=== PATIENT | female | born 1965 | race Caucasian/White ===

== ENCOUNTER → 2024-06-05 | Outpatient (CLI) | payer OTHER ==
--- NOTE | 2024-06-05 15:32 | CT ---
EXAMINATION TYPE: CT abdomen pelvis w con DATE OF EXAM: 06/05/2024 COMPARISON: None CLINICAL INDICATION: Female, 59 years old with history of R11.0 NAUSEA R74.8 ABNORMAL LEVELS OF OTHER SERUM; PHH, elevated pancreatic enzymes TECHNIQUE: Performed with Oral Contrast and with IV Contrast, patient injected with 100ml mL of Isovue 300. CT DLP: 610.[address] CTDI: mGy Automated exposure control for dose reduction was used. FINDINGS: There are single sub-4 mm pulmonary nodules in the lung bases. There is no lung consolidation or pleu ral effusion The gallbladder is normal without distention, wall thickening, pericholecystic fluid or gallstones. T here is no biliary ductal dilatation. There is no focal mass or organomegaly involving the liver, pancreas, spleen or adrenal glands. There is no solid renal mass or hydronephrosis and there is homogeneous contrast enhancement of the r enal parenchyma. The caliber the abdominal aorta is normal is no retroperitoneal adenopathy or hemorr francesca. The bowel loops are normal in caliber and there is no evidence of dilatation or obstruction. No infla mmatory changes are identified in the bowel wall or mesentery. There is no free intraperitoneal air or fluid. No pelvic mass, free fluid, abscess or adenopathy. The osseous structures and soft tissues are intact. IMPRESSION: 1. Single bilateral sub-4 mm pulmonary nodules. This is a high risk patient for lung cancer then CT t horax is recommended for evaluation of the lung parenchyma in its entirety. 2. No acute changes within the abdomen or pelvis. There is no evidence of acute pancreatitis. [facility], , 06/05/2024 3:29 PM
== END | disposition home or self-care (01) ==
LOC: RADCTMAIN 13:15
PROVIDERS: ATTEND Family Medicine
DX: R74.8 Abnormal levels of other serum enzymes (principal); R11.0 Nausea; R91.8 Other nonspecific abnormal finding of lung field
CPT/HCPCS: 74177; Q9967

== ENCOUNTER → 2024-06-30 | Outpatient (CLI) | payer OTHER ==
--- NOTE | 2024-06-30 09:34 | US ---
EXAMINATION TYPE: US abdomen complete DATE OF EXAM: 06/30/2024 COMPARISON: NONE CLINICAL INDICATION: Female, 59 years old with history of R11.0 CHR NAUSEA; Abdomen discomfort. TECHNIQUE: Grayscale and color Doppler imaging of the abdomen was performed. FINDINGS: EXAM MEASUREMENTS: Liver Length: 14.1 cm Gallbladder Wall: 0.1 cm CBD: 0.7 cm, color Doppler imaging was utilized to isolate the common bile duct for measurement. Spleen: 7.2 cm Right Kidney: 10.2 x 4.0 x 3.7 cm Left Kidney: 9.8 x 4.4 x 5.6 cm Pancreas: Head and tail obscured by overlying bowel gas Liver: wnl Gallbladder: No stones or wall thickening Evidence for sonographic Mina's sign: neg CBD: wnl Spleen: limited due to gas Right Kidney: Dilated renal pelvis. Superior mid anechoic lesion = 1.2 x 1.1 x 1.1 cm Left Kidney: Limited due to bowel gas, no prominent masses or lesions seen Upper IVC: wnl Abd Aorta: No AAA visualized at time of scan The liver is homogenous. The intrahepatic portion of the IVC and proximal abdominal aorta are within normal limits. There is no evidence of cholelithiasis. Common bile duct is unremarkable. The visu alized portions of the pancreas are homogenous. The spleen is unremarkable. Kidneys are symmetric a nd free of hydronephrosis. No renal lesions are seen. IMPRESSION: 1. No evidence for acute process. 2. Simple appearing right renal cyst. [facility], , 06/30/2024 9:32 AM
--- NOTE | 2024-06-30 09:43 | MM ---
Reason for Exam: Clinical finding. Indicated Problems: Pain of both sides (Focal) : rt more than left. Patient History: Menarche at age 16. First Full-Term at age 27. Postmenopausal. Maternal cousin had breast cancer. Maternal cousin had breast cancer. Maternal cousin had breast cancer. Maternal aunt had breast cancer at or over age 50. Sister had breast cancer under age 50. Risk Values: Lise 5 year model risk: 1.6%. NCI Lifetime model risk: 9.4%. Prior Study Comparison: No prior studies available for comparison. Tissue Density: The breasts are heterogeneously dense, which may obscure small masses. Findings: Analyzed By CAD. No evidence for mass or distortion. No suspicious calcifications. No skin thickening. Overall Assessment: Negative, BI-RAD 1 Management: Screening Mammogram of both breasts in 1 year. . Results were given to the patient verbally at the time of exam. Patient should continue monthly self-breast exams. A clinical breast exam by your physician is recommended on an annual basis. This exam should not preclude additional follow-up of suspicious palpable abnormalities. Note on Lise scores and lifetime risk: 1. A Lise score greater than 3% is considered moderate risk. If this is the case, consider specialist referral to assess eligibility for a risk reducing agent. 2. If overall lifetime risk for the development of breast cancer is 20% or higher, the patient may qualify for future screening with alternating mammogram and breast MRI. [facility], , 06/30/2024 9:39 AM. Electronically signed and approved by: Tung Man M.D. Radiolog[facility]
== END | disposition home or self-care (01) ==
LOC: RADUSWWP 08:07
PROVIDERS: ATTEND Family Medicine
DX: N28.1 Cyst of kidney, acquired (principal); N64.4 Mastodynia; R11.0 Nausea; Z80.3 Family history of malignant neoplasm of breast; Z78.0 Asymptomatic menopausal state; R92.333 Mammographic heterogeneous density, bilateral breasts
CPT/HCPCS: 76700; 77062; 77066

== ENCOUNTER → 2024-08-03 | Day surgery (SDC) | payer OTHER ==
[2024-08-02 14:00] VITALS: BMI 29.9
[~2024-08-03] MED LIST: PROPOFOL 10 MG/ML 20 ML VIAL IV ONE
[2024-08-03 10:29] VITALS: RESP 16; TEMP 98.4
[2024-08-03] MEDS: LACTATED RINGERS 1,000 ML IV ONE (10:37)
--- NOTE | 2024-08-03 11:45 | P.PCN ---
Date of Procedure: 08/03/24 Procedure(s) Performed: Brief history: Patient is a pleasant 59-year-old [place] female scheduled for an elective upper endoscopy as well as colonoscopy as a part of evaluation of chronic intermittent nausea, occasional emesis, abdominal bloating, abdominal pain and chronic diarrhea for the last 1 year duration Procedure performed: Esophagogastroduodenoscopy with biopsy Colonoscopy with biopsy Preoperative diagnosis: Chronic nausea, abdominal pain Chronic diarrhea [place] [facility] [place]: After informed consent was obtained from the patient was brought into the endoscopy unit and IV sedation was administered by anesthesia under continuous monitoring. Initially upper endoscopy was done. The Olympus GF 160 video endoscope was inserted inserted into the mouth and esophagus intubated without any difficulty and was gradually advanced into the stomach and duodenum and carefully examined. The bulb and second part of the duodenum appeared normal. Biopsies were done from the duodenum rule out celiac disease. The scope was then withdrawn into the stomach adequately insufflated with air and upon careful examination the antrum had patchy areas of erythema consistent with gastritis and biopsies were done from this area. Mucosa body, cardia and fundus appeared normal. The scope was then withdrawn into the esophagus. The GE junction was located at 40 cm to the incisors. It appeared regular with no mild circumferential erythema consistent with LA grade a reflux esophagitis.. Rest of the esophagus appeared normal. Patient tolerated the procedure well. At this time the patient continued to remain sedation. Initial digital rectal examination was normal. Olympus CF 160 video colonoscope was then inserted into the rectum and gradually advanced to the cecum without any difficulty. Careful examination was performed as the scope was gradually being withdrawn. The prep was excellent. The cecum, ascending colon, transverse colon, descending colon, sigmoid colon and rectum appeared normal. In the proximal rectum there is a 5 mm polyp that was removed by cold biopsy. Scattered sigmoid diverticulosis seen. Biopsies were done from the ascending and descending colon to rule out microscopic/collagenous colitis. Retroflexion was performed in the rectum and no lesions were noted. Patient tolerated the procedure well. Impression: 1. Upper endoscopy revealed mild antral gastritis and LA grade a reflux esophagitis 2. Colonoscopy revealed scattered small diverticulosis and a 5 mm proximal rectal polyp status post cold biopsy Recommendations: Findings of this examination were discussed with the patient as well as her family. She was advised follow-up with the biopsy results. Follow-up in the office in 2 to 3 weeks.
[2024-08-03 13:17] VITALS: BP 136/72; PULSE 78
== END ==
LOC: ORWHC2ENDO 08:52
PROVIDERS: ATTEND Internal Medicine Gastroenterology
DX: K62.1 Rectal polyp (principal); K57.30 Diverticulosis of large intestine without perforation or abscess without bleeding; K29.50 Unspecified chronic gastritis without bleeding; K21.00 Gastro-esophageal reflux disease with esophagitis, without bleeding; D72.820 Lymphocytosis (symptomatic); Z88.0 Allergy status to penicillin; Z91.048 Other nonmedicinal substance allergy status
CPT/HCPCS: 88305; 88342; 45380; 43239; J2704

== ENCOUNTER → 2024-08-10 | Outpatient (CLI) | payer OTHER ==
[2024-08-11 10:06] LABS: Cryptosporidium Antigen Negative (Negative)
== END | disposition home or self-care (01) ==
LOC: LABWHC1 12:55
PROVIDERS: ATTEND Family Medicine
DX: R19.7 Diarrhea, unspecified (principal)
CPT/HCPCS: 36415; 82272; 87045; 87046; 87328; 87329; 87425

== ENCOUNTER → 2024-08-10 | Outpatient (CLI) | payer OTHER ==
--- NOTE | 2024-08-10 13:31 | US ---
EXAMINATION TYPE: US kidneys/renal and bladder DATE OF EXAM: 08/10/2024 COMPARISON: Abdominal ultrasound 06/30/2024, CT abdomen and pelvis 06/05/2024 CLINICAL INDICATION: Female, 59 years old with history of R39.89 OTHER SYMPTOMS AND SIGNS INVOLVING T HE KHURRAM; Patient states right flank pain and nausea TECHNIQUE: Grayscale imaging of the bilateral kidneys and urinary bladder: FINDINGS: EXAM MEASUREMENTS: Right Kidney: 10.8 x 5.8 x 4.1 cm Left Kidney: 10.5 x 5.5 x 4.3 cm Post Void Residual Volume: NA mL Difficult exam due to overlying bowel gas and rib shadow Right Kidney: Cystic area redemonstrated Left Kidney: wnl, no evidence for hydronephrosis, mass or renal calculus. Bladder: WNL Bilateral Jets seen: Yes Normal Post Void Residual: NA There is no evidence for hydronephrosis at this point in time. No nephrolithiasis is seen. Right re nal upper pole 1.2 cm simple cyst. No solid renal masses are identified. Cortical medullary different iation is maintained bilaterally. The urinary bladder is anechoic. IMPRESSION: 1. No hydronephrosis or nephrolithiasis. 2. Right renal cyst. [facility], , 08/10/2024 1:28 PM
== END | disposition home or self-care (01) ==
LOC: RADUSWWP 13:04
PROVIDERS: ATTEND Family Medicine
DX: N28.1 Cyst of kidney, acquired (principal); R39.89 Other symptoms and signs involving the genitourinary system
CPT/HCPCS: 76770

== ENCOUNTER 2024-09-21 17:18 | Observation (INO) | payer OTHER ==
[2024-09-21 19:50] LABS: Basophils % (A) 1 %; Eosinophils # (A) 0.2 k/uL (0-0.7); Eosinophils % (A) 2 %; HGB 14.5 gm/dL (11.4-16.0); Lymphocytes # (A) 2.5 k/uL (1.0-4.8); Lymphocytes % (A) 30 %; MCH 27.5 pg (25.0-35.0); MCHC 31.5 g/dL (31.0-37.0); MCV 87.2 fL (80.0-100.0); Mean Platelet Volume 7.8; Monocytes # (A) 0.5 k/uL (0-1.0); Monocytes % (A) 6 %; Neutrophils % (A) 60 %; Platelet Count 298 k/uL (150-450); RBC 5.28 m/uL (3.80-5.40); RDW 13.2 % (11.5-15.5); WBC 8.4 k/uL (3.8-10.6)
[2024-09-21 19:59] LABS: ALT 22 U/L (4-34); AST 20 U/L (14-36); African American GFR (CKD) 79 (>60 ml/min/1.73 sqM); Albumin 4.6 g/dL (3.5-5.0); Alkaline Phosphatase 75 U/L (38-126); Anion Gap 8 mmol/L; Blood Urea Nitrogen 18 mg/dL (7-17); Calcium 9.4 mg/dL (8.4-10.2); Carbon Dioxide 29 mmol/L (22-30); Chloride 101 mmol/L (98-107); Glucose 93 mg/dL (74-99); Magnesium 2.3 mg/dL (1.6-2.3); Non-African American GFR(CKD) 68 (>60 ml/min/1.73 sqM); Sodium 138 mmol/L (137-145); Total Bilirubin 0.9 mg/dL (0.2-1.3); Total Protein 7.6 g/dL (6.3-8.2)
[2024-09-21 20:02] LABS: Partial Thromboplastin Time 23.4 sec (22.0-30.0); Prothrombin Time 11.3 sec (10.0-12.5)
--- NOTE | 2024-09-21 20:02 | XR ---
EXAMINATION TYPE: XR chest 2V DATE OF EXAM: 09/21/2024 CLINICAL INDICATION: Female, 59 years old with history of Weakness, TECHNIQUE: Frontal and lateral views of the chest are obtained. COMPARISON: None FINDINGS: Overlying bra strap is present. Underlying emphysematous change is not excluded. There is n o focal air space opacity, pleural effusion, or pneumothorax seen. The cardiac silhouette size is mi ldly enlarged. The osseous structures are intact. IMPRESSION: Mild cardiomegaly without acute pulmonary process. [facility], , 09/21/2024 8:00 PM
[2024-09-21 20:36] LABS: Appearance,Urine Clear (Clear); Bilirubin,Urine Negative (Negative); Blood,Urine Negative (Negative); Color,Urine Colorless; Glucose,Urine (UA) Negative (Negative); Ketones,Urine Negative (Negative); Leukocyte Esterase,Urine Negative (Negative); Nitrite,Urine Negative (Negative); PH, Urine 6.5 (5.0-8.0); Protein,Urine Negative (Negative); Specific Gravity,Urine 1.016 (1.001-1.035); Urobilinogen,Urine <2.0 mg/dL (<2.0)
[2024-09-21 21:14] LABS: Influenza A Not Detected (Not Detectd); Influenza B Not Detected (Not Detectd); RSV Not Detected (Not Detectd)
[2024-09-21] MEDS: ACETAMINOPHEN TAB 325 MG TAB PO STA (23:21)
[2024-09-22] MEDS: ASPIRIN 81 MG PO STA (00:40)
[2024-09-22] MEDS: FAMOTIDINE 20 MG/2 ML VIAL IV STA (00:41)
[2024-09-22] MEDS: KETOROLAC 15 MG/ML 1 ML VIAL IVP STA (00:44)
--- NOTE | 2024-09-22 00:53 | US ---
EXAM: US Duplex Bilateral Lower Extremities Veins CLINICAL HISTORY: ITS.REASON US Reason: Leg pain TECHNIQUE: Real-time duplex ultrasound scan of the bilateral lower extremity veins integrating B-mode two-dimensional vascular structure, Doppler spectral analysis, color flow Doppler imaging and compression. COMPARISON: No relevant prior studies available. FINDINGS: Right deep veins: Unremarkable. No DVT in the right common femoral, femoral, proximal deep femoral or popliteal veins. The veins demonstrate normal color flow, are normally compressible, with normal phasic flow and/or augmentation response. Right superficial veins: Unremarkable. No thrombus in the visualized right great saphenous vein. Left deep veins: Unremarkable. No DVT in the left common femoral, femoral, proximal deep femoral or popliteal veins. The veins demonstrate normal color flow, are normally compressible, with normal phasic flow and/or augmentation response. Left superficial veins: Unremarkable. No thrombus in the visualized left great saphenous vein. Soft tissues: No acute findings. No popliteal cyst. IMPRESSION: No DVT
--- NOTE | 2024-09-22 01:21 | ED ---
General Adult HPI - General Chief complaint: Weakness Stated complaint: L leg pain Time Seen by Provider: 09/21/24 22:01 Source: patient Mode of arrival: ambulatory Limitations: language barrier - History of Present Illness Initial comments: History limited by use of an science interpreter. Patient is a 59-year-old female past medical history of fibromyalgia presenting today for leg swelling and chest pain. Patient states that over the last week she has noticed prominence of the veins in her leg and so was sent to the ER by her primary care provider for fu rther evaluation. States over this time she has noticed swelling in her legs worse on the left than the right. Over the last few days she has noticed chest pressure in the center of her chest that is nonradiating as well as exertional dyspnea that she predominantly notices when going up stairs. No medications trialed at home for her pain. Denies fevers but endorses chills/hot flashes. She herself has no hx prior PE/DVT or ACS. She does not have any history of clotting disorders. No recent surgeries, travel, or hospitalizations. No hemoptysis, no cough. States her father from complications from ACS. Pt's sister has significant cardiac hx. Patient states that she was told she has a high likelihood of cardiac issues due to her family history. Also notes headaches over the last few days. States she has had headaches like this before when she had COVID 19. She is a nonsmoker. - Related Data Home Medications Medication Instructions Recorded Confirmed Dicyclomine [Bentyl] 10 mg PO TID 09/22/24 09/22/24 Pantoprazole [Protonix] 40 mg PO AC-BID 09/22/24 09/22/24 Previous Rx's Medication Instructions Recorded Aspirin 81 mg PO DAILY tab 09/22/24 Allergies Allergy/AdvReac Type Severity Reaction Status Date / Time ampicillin Allergy Anaphylaxis Verified 09/22/24 12:52 diphenhydramine Allergy Rash/Hives Verified 09/22/24 12:52 [From Benadryl] Penicillins Allergy Anaphylaxis Verified 09/22/24 12:52 Review of Systems ROS Statement: Those systems with pertinent positive or pertinent negative responses have been documented in the HPI. ROS Other: All systems not noted in ROS Statement are negative. Past Medical History Past Medical History: Fibromyalgia Additional Past Medical History / Comment(s): H Pylori. History of Any Multi-Drug Resistant Organisms: None Reported Past Surgical History: Tonsillectomy, Tubal Ligation Additional Past Surgical History / Comment(s): Colonoscopy X2, EGD X4. Past Anesthesia/Blood Transfusion Reactions: No Reported Reaction, Motion Sickness Past Psychological History: No Psychological Hx Reported Smoking Status: Never smoker Past Alcohol Use History: None Reported Past Drug Use History: None Reported - Past Family History Sister(s) Family Medical History: Cancer Additional Family Medical History / Comment(s): Breast cancer. Strong family hx of cancer on paternal side. General Exam - General Exam Comments Initial Comments: PE: CONSTITUTIONAL: No apparent distress, well appearing SKIN: Warm, dry, no jaundice, hives or petechiae, prominence of the superficial veins in the distal lower extremities EYES: Pupils are equally round, extraocular movements intact without nystagmus, clear conjunctiva, non-icteric sclera HENT: Normocephalic, atraumatic, moist mucus membranes, oropharynx clear without exudates NECK: , Full range of motion, normal appearance PULMONARY: Clear to auscultation without wheezes, rhonchi, or rales, normal excursion, no accessory muscle use and no stridor CARDIOVASCULAR: Regular rate, rhythm, normal S1 and S2. No appreciated murmurs, rubs or gallops. Strong radial pulses with intact distal perfusion. No lower extremity edema GASTROINTESTINAL: Soft, active bowel sounds throughout, non-tender, non-d istended, no palpable masses, no rebound or guarding. No hepatosplenomegaly GENITOURINARY: MUSCULOSKELETAL: Extremities have no gross deformity, no edema, redness, or swelling. NEUROLOGIC:_a/o x 3, GCS 15, normal mentation and speech. Moves all extremities x 4 without motor or sensory deficit PSYCHIATRIC:_normal mood and affect, thought process is clear and linear Limitations: language barrier Course Vital Signs 09/21/24 09/21/24 09/22/24 17:53 22:59 00:48 Temperature 98.3 F Pulse Rate 78 66 58 L Respiratory 18 18 16 Rate Blood Pressure 157/75 145/98 159/96 O2 Sat by Pulse 99 99 99 Oximetry 09/22/24 09/22/24 09/22/24 02:59 06:53 07:37 Temperature 98.7 F 97.8 F 98.1 F Pulse Rate 70 70 68 Respiratory 18 16 16 Rate Blood Pressure 157/91 124/90 118/85 O2 Sat by Pulse 97 99 99 Oximetry 09/22/24 09/22/24 09/22/24 09:00 13:00 13:56 Temperature Pulse Rate 86 76 68 Respiratory 16 20 16 Rate Blood Pressure 107/79 135/97 130/68 O2 Sat by Pulse 98 98 98 Oximetry 09/22/24 15:30 Temperature Pulse Rate 85 Respiratory 16 Rate Blood Pressure 132/68 O2 Sat by Pulse 98 Oximetry EKG Findings - EKG Comments: EKG Findings:: Sinus rhythm, rate 70 bpm ME interval 154 ms QT/QTc 381/402 ms, normal axis, T wave inversion lead V2, V3, small Q-wave lead V1, V2, no ST elevations or depressions, no STEMI, no Brugada pattern or Wellens waves Medical Decision Making - Medical Decision Making Was pt. sent in by a medical professional or institution (, PA, DASHBOARD DEVELOPER, urgent care, hospital, or long-term...) When possible be specific @ -No Did you speak to anyone other than the patient for history (EMS, parent, family, police, friend...)? What history was obtained from this source @ -No Differential Diagnosis (chest pain, altered mental status, abdominal pain women, abdominal pain men, vaginal bleeding, weakness, fever, dyspnea, syncope, headache, dizziness, GI bleed, back pain, seizure, CVA, palpatations, mental health, musculoskeletal)? Differential diagnosis remains broad however top considerations include ACS pericarditis, pleurisy, chostochondirits, GERD, Cholecystitis, Pancreatitis, viral URI, DVT, this is not meant to be an all-inclusive list. EKG interpreted by me (3pts min.). @ -As above X-rays interpreted by me (1pt min.). @ -Personally reviewed CXR, Mild cardiomegaly noted, I see no pneumonia/ obvious consolidations or pleural effusions CT interpreted by me (1pt min.). @ -None done U/S interpreted by me (1pt. min.). Personally reviewed US DVT, I see no evidence of noncompressible veins/ venous occlusion to indicate DVT, agree w/ radiologist interpretation What testing was considered but not performed or refused? (CT, X-rays, U/S, labs)? Why? @ -None What meds were considered but not given or refused? Why? @ -None Did you discuss the management of the patient with other professionals (professionals i.e. ., PA, DASHBOARD DEVELOPER, lab, RT, psych nurse, health care social worker, velvet weaver, teacher, quality officer, egg caser)? Give summary @ -No Was smoking cessation discussed for >3mins.? @ -No Was critical care preformed (if so, how long)? @ -No Were there social determinants of health that impacted care today? How? (Homelessness, low income, unemployed, alcoholism, drug addiction, trans portation, low edu. Level, literacy, decrease access to med. care, correction, rehab)? @ -No Was there de-escalation of care discussed even if they declined (Discuss DNR or withdrawal of care, Hospice)? @ -No What co-morbidities impacted this encounter? (DM, HTN, Smoking, COPD, CAD, Cancer, CVA, ARF, Chemo, Hep., AIDS, mental health diagnosis, sleep apnea, morbid obesity)? @ -None Was patient admitted / discharged? Hospital course, mention meds given and route, prescriptions, significant lab abnormalities, going to OR and other pertinent info. @Admission -patient is a 59-year-old female presenting today for chest pressure and lower extremity swelling as well as generalized weakness. Also endorses exertional dyspnea over the last week. Patient did spend a significant amount of time in the waiting room due to boarding in the emergency department and bed shortages. Initial labs and imaging ordered by BEENA as part of triage process. Initial troponin within normal limits. Added BNP, D-dimer. EKG overall reassuring with questionable small Q-wave in lead V1, V2. No ST elevations or depressions, patient currently endorsed substernal chest pain. Ongoing x 2 days. Does not appear to be in any distress. Does have significant family history of cardiac issues with a father that of heart attack and a sister that has significant cardiac history. Patient is a non-smoker. Given patient's heart score of 4, cardiomegaly on chest x-ray anticipate admission due to elevated HEART score. D-dimer undetectable. The repeat troponin within normal limits. On reassessment patient denies any improvement in pain states now radiates towards left breast. States no improvement with Tylenol. Toradol was just given. We will trial setting on nitroglycerin as well as morphine. I did discuss with patient her reassuring workup, we discussed discharge home versus admission for observation given cardiomegaly and significant family history. Patient would prefer admission. Patient be admitted for observation, echocardiogram and cardiology consult due to elevated HEART score of 4. Did trial sublingual nitroglycerin patient was palpitations but no improvement in pain. Case discussed w/ Dr. Lund, kindly accepts pt for admission. Undiagnosed new problem with uncertain prognosis? @ -No Drug Therapy requiring intensive monitoring for toxicity (Heparin, Nitro, Insulin, Cardizem)? @ -No Were any procedures done? @ -No Diagnosis/symptom? CP, exertional dyspnea Acute, or Chronic, or Acute on Chronic? @ -acute Uncomplicated (without systemic symptoms) or Complicated (systemic symptoms)? @ -Complicated Side effects of treatment? @ -No Exacerbation, Progression, or Severe Exacerbation? @ -No Poses a threat to life or bodily function? How? (Chest pain, [place], NH, pneumonia, PE, COPD, DKA, ARF, appy, cholecystitis, CVA, Diverticulitis, Homicidal, Suicidal, threat to staff... and all critical care pts) @ -If secondary to ACS or other acute cardiac abnormality symptoms are potential ly life-threatening - Lab Data Result diagrams: 09/21/24 19:40 09/21/24 19:40 Lab Results 09/21/24 09/21/24 09/21/24 Range/Units 19:40 19:40 19:40 WBC 8.4 (3.8-10.6) k/uL RBC 5.28 (3.80-5.40) m/uL Hgb 14.5 (11.4-16.0) gm/dL Hct 46.0 (34.0-46.0) % MCV 87.2 (80.0-100.0) fL MCH 27.5 (25.0-35.0) pg MCHC 31.5 (31.0-37.0) g/dL RDW 13.2 (11.5-15.5) % Plt Count 298 (150-450) k/uL MPV 7.8 Neutrophils % 60 % Lymphocytes % 30 % Monocytes % 6 % Eosinophils % 2 % Basophils % 1 % Neutrophils # 5.0 (1.3-7.7) k/uL Lymphocytes # 2.5 (1.0-4.8) k/uL Monocytes # 0.5 (0-1.0) k/uL Eosinophils # 0.2 (0-0.7) k/uL Basophils # 0.0 (0-0.2) k/uL PT 11.3 (10.0-12.5) sec INR 1.0 (<1.2) APTT 23.4 (22.0-30.0) sec D-Dimer (<0.60) mg/L FEU Sodium 138 (137-145) mmol/L Potassium 4.0 (3.5-5.1) mmol/L Chloride 101 (98-107) mmol/L Carbon Dioxide 29 (22-30) mmol/L Anion Gap 8 mmol/L BUN 18 H (7-17) mg/dL Creatinine 0.93 (0.52-1.04) mg/dL Est GFR (CKD-EPI)AfAm 79 (>60 ml/min/1.73 sqM) Est GFR (CKD-EPI)NonAf 68 (>60 ml/min/1.73 sqM) Glucose 93 (74-99) mg/dL Plasma Lactic Acid Marcos (0.7-2.0) mmol/L Calcium 9.4 (8.4-10.2) mg/dL Magnesium 2.3 (1.6-2.3) mg/dL Total Bilirubin 0.9 (0.2-1.3) mg/dL AST 20 (14-36) U/L ALT 22 (4-34) U/L Alkaline Phosphatase 75 (38-126) U/L Troponin I (0.000-0.034) ng/mL NT-Pro-B Natriuret Pep pg/mL Total Protein 7.6 (6.3-8.2) g/dL Albumin 4.6 (3.5-5.0) g/dL Lipase (23-300) U/L Urine Color Urine Appearance (Clear) Urine pH (5.0-8.0) Ur Specific Prospect (1.001-1.035) Urine Protein (Negative) Urine Glucose (UA) (Negative) Urine Ketones (Negative) Urine Blood (Negative) Urine Nitrite (Negative) Urine Bilirubin (Negative) Urine Urobilinogen (<2.0) mg/dL Ur Leukocyte Esterase (Negative) Influenza Type A (PCR) (Not Detectd) Influenza Type B (PCR) (Not Detectd) RSV (PCR) (Not Detectd) SARS-CoV-2 (PCR) (Not Detectd) 09/21/24 09/21/24 09/21/24 Range/Units 19:40 19:40 19:40 WBC (3.8-10.6) k/uL RBC (3.80-5.40) m/uL Hgb (11.4-16.0) gm/dL Hct (34.0-46.0) % MCV (80.0-100.0) fL MCH (25.0-35.0) pg MCHC (31.0-37.0) g/dL RDW (11.5-15.5) % Plt Count (150-450) k/uL MPV Neutrophils % % Lymphocytes % % Monocytes % % Eosinophils % % Basophils % % Neutrophils # (1.3-7.7) k/uL Lymphocytes # (1.0-4.8) k/uL Monocytes # (0-1.0) k/uL Eosinophils # (0-0.7) k/uL Basophils # (0-0.2) k/uL PT (10.0-12.5) sec INR (<1.2) APTT (22.0-30.0) sec D-Dimer (<0.60) mg/L FEU Sodium (137-145) mmol/L Potassium (3.5-5.1) mmol/L Chloride (98-107) mmol/L Carbon Dioxide (22-30) mmol/L Anion Gap mmol/L BUN (7-17) mg/dL Creatinine (0.52-1.04) mg/dL Est GFR (CKD-EPI)AfAm (>60 ml/min/1.73 sqM) Est GFR (CKD-EPI)NonAf (>60 ml/min/1.73 sqM) Glucose (74-99) mg/dL Plasma Lactic Acid Marcos 1.0 (0.7-2.0) mmol/L Calcium (8.4-10.2) mg/dL Magnesium (1.6-2.3) mg/dL Total Bilirubin (0.2-1.3) mg/dL AST (14-36) U/L ALT (4-34) U/L Alkaline Phosphatase (38-126) U/L Troponin I <0.012 (0.000-0.034) ng/mL NT-Pro-B Natriuret Pep 27 pg/mL Total Protein (6.3-8.2) g/dL Albumin (3.5-5.0) g/dL Lipase (23-300) U/L Urine Color Urine Appearance (Clear) Urine pH (5.0-8.0) Ur Specific Prospect (1.001-1.035) Urine Protein (Negative) Urine Glucose (UA) (Negative) Urine Ketones (Negative) Urine Blood (Negative) Urine Nitrite (Negative) Urine Bilirubin (Negative) Urine Urobilinogen (<2.0) mg/dL Ur Leukocyte Esterase (Negative) Influenza Type A (PCR) (Not Detectd) Influenza Type B (PCR) (Not Detectd) RSV (PCR) (Not Detectd) SARS-CoV-2 (PCR) (Not Detectd) 09/21/24 09/21/24 09/21/24 Range/Units 19:40 20:26 20:26 WBC (3.8-10.6) k/uL RBC (3.80-5.40) m/uL Hgb (11.4-16.0) gm/dL Hct (34.0-46.0) % MCV (80.0-100.0) fL MCH (25.0-35.0) pg MCHC (31.0-37.0) g/dL RDW (11.5-15.5) % Plt Count (150-450) k/uL MPV Neutrophils % % Lymphocytes % % Monocytes % % Eosinophils % % Basophils % % Neutrophils # (1.3-7.7) k/uL Lymphocytes # (1.0-4.8) k/uL Monocytes # (0-1.0) k/uL Eosinophils # (0-0.7) k/uL Basophils # (0-0.2) k/uL PT (10.0-12.5) sec INR (<1.2) APTT (22.0-30.0) sec D-Dimer (<0.60) mg/L FEU Sodium (137-145) mmol/L Potassium (3.5-5.1) mmol/L Chloride (98-107) mmol/L Carbon Dioxide (22-30) mmol/L Anion Gap mmol/L BUN (7-17) mg/dL Creatinine (0.52-1.04) mg/dL Est GFR (CKD-EPI)AfAm (>60 ml/min/1.73 sqM) Est GFR (CKD-EPI)NonAf (>60 ml/min/1.73 sqM) Glucose (74-99) mg/dL Plasma Lactic Acid Marcos (0.7-2.0) mmol/L Calcium (8.4-10.2) mg/dL Magnesium (1.6-2.3) mg/dL Total Bilirubin (0.2-1.3) mg/dL AST (14-36) U/L ALT (4-34) U/L Alkaline Phosphatase (38-126) U/L Troponin I (0.000-0.034) ng/mL NT-Pro-B Natriuret Pep pg/mL Total Protein (6.3-8.2) g/dL Albumin (3.5-5.0) g/dL Lipase 92 (23-300) U/L Urine Color Colorless Urine Appearance Clear (Clear) Urine pH 6.5 (5.0-8.0) Ur Specific Prospect 1.016 (1.001-1.035) Urine Protein Negative (Negative) Urine Glucose (UA) Negative (Negative) Urine Ketones Negative (Negative) Urine Blood Negative (Negative) Urine Nitrite Negative (Negative) Urine Bilirubin Negative (Negative) Urine Urobilinogen <2.0 (<2.0) mg/dL Ur Leukocyte Esterase Negative (Negative) Influenza Type A (PCR) Not Detected (Not Detectd) Influenza Type B (PCR) Not Detected (Not Detectd) RSV (PCR) Not Detected (Not Detectd) SARS-CoV-2 (PCR) Not Detected (Not Detectd) 09/22/24 09/22/24 Range/Units 00:42 00:42 WBC (3.8-10.6) k/uL RBC (3.80-5.40) m/uL Hgb (11.4-16.0) gm/dL Hct (34.0-46.0) % MCV (80.0-100.0) fL MCH (25.0-35.0) pg MCHC (31.0-37.0) g/dL RDW (11.5-15.5) % Plt Count (150-450) k/uL MPV Neutrophils % % Lymphocytes % % Monocytes % % Eosinophils % % Basophils % % Neutrophils # (1.3-7.7) k/uL Lymphocytes # (1.0-4.8) k/uL Monocytes # (0-1.0) k/uL Eosinophils # (0-0.7) k/uL Basophils # (0-0.2) k/uL PT (10.0-12.5) sec INR (<1.2) APTT (22.0-30.0) sec D-Dimer <0.17 (<0.60) mg/L FEU Sodium (137-145) mmol/L Potassium (3.5-5.1) mmol/L Chloride (98-107) mmol/L Carbon Dioxide (22-30) mmol/L Anion Gap mmol/L BUN (7-17) mg/dL Creatinine (0.52-1.04) mg/dL Est GFR (CKD-EPI)AfAm (>60 ml/min/1.73 sqM) Est GFR (CKD-EPI)NonAf (>60 ml/min/1.73 sqM) Glucose (74-99) mg/dL Plasma Lactic Acid Marcos (0.7-2.0) mmol/L Calcium (8.4-10.2) mg/dL Magnesium (1.6-2.3) mg/dL Total Bilirubin (0.2-1.3) mg/dL AST (14-36) U/L ALT (4-34) U/L Alkaline Phosphatase (38-126) U/L Troponin I <0.012 (0.000-0.034) ng/mL NT-Pro-B Natriuret Pep pg/mL Total Protein (6.3-8.2) g/dL Albumin (3.5-5.0) g/dL Lipase (23-300) U/L Urine Color Urine Appearance (Clear) Urine pH (5.0-8.0) Ur Specific Prospect (1.001-1.035) Urine Protein (Negative) Urine Glucose (UA) (Negative) Urine Ketones (Negative) Urine Blood (Negative) Urine Nitrite (Negative) Urine Bilirubin (Negative) Urine Urobilinogen (<2.0) mg/dL Ur Leukocyte Esterase (Negative) Influenza Type A (PCR) (Not Detectd) Influenza Type B (PCR) (Not Detectd) RSV (PCR) (Not Detectd) SARS-CoV-2 (PCR) (Not Detectd) Disposition Clinical Impression: Chest pain, Cardiomegaly Disposition: ADMITTED IP TO THIS HOSP Condition: Stable
[2024-09-22] MEDS: NITROGLYCERIN SL TABS 0.4 MG TAB SUBLINGUAL STA (02:22)
[2024-09-22] MEDS: LORazepam 2 MG/ML INJ IV STA (02:37)
[2024-09-22] MEDS ORDERED: traMADol 50 MG TAB PO PRN (03:00)
[2024-09-22] MEDS ORDERED: ALPRAZolam 0.25 MG TAB PO PRN (03:00)
[2024-09-22] MEDS ORDERED: NALOXONE 0.4 MG/ML 1 ML VIAL IV PRN (03:00)
[2024-09-22] MEDS ORDERED: MORPHINE SULFATE 4 MG/ML SYRINGE IV PRN (03:00)
[2024-09-22] MEDS ORDERED: MAG HYDROX/AL HYDROX/SIMETH 30 ML CUP PO PRN (03:00)
[2024-09-22] MEDS ORDERED: ONDANSETRON 4 MG/2 ML VIAL IVP PRN (03:00)
[2024-09-22] MEDS: MORPHINE SULFATE 4 MG/ML SYRINGE IVP STA (04:11)
[2024-09-22] MEDS: ONDANSETRON 4 MG/2 ML VIAL IVP STA (04:12)
[2024-09-22] MEDS: SODIUM CHLORIDE 0.9% 1,000 ML IV SCH (04:18)
[2024-09-22 07:39] VITALS: TEMP 98.1
[2024-09-22] MEDS: ACETAMINOPHEN TAB 325 MG TAB PO PRN (07:41)
[2024-09-22] MEDS: FAMOTIDINE 20 MG TAB PO SCH (09:26)
[2024-09-22] MEDS ORDERED: DOBUTamine DRIP for NUC MED 500 MG in DEXTROSE/WATER 1 250ML.BAG IV PRN (10:37)
--- NOTE | 2024-09-22 12:15 | P.CRDCN ---
History of Present Illness History of present illness: HISTORY OF PRESENT ILLNESS: This is a 59-year-old female with no significant past medical history. Patient does not follow with a dopeman. We have been asked to see the patient in consultation for chest pain. Patient examined at the bedside. The patient speaks primarily Citizen Of [place]. There is no family at the bedside present. Software Engineer Kernel services were used during examination and evaluation. Patient reports she has been having chest pain on and off for the past 2 weeks. She de scribes it as a squeezing type sensation. She also reports having a headache. Additionally she complains of pain in her left leg. She denies any known history of CAD. She denies a history of hypertension, hyperlipidemia, or diabetes to her knowledge. She is a non-smoker. She does report a family history of CAD and states that her dad from heart problems. DIAGNOSTICS: - EKG reveals sinus mechanism with incomplete right bundle branch block. No signs of acute ischemia.. - Chest xray mild cardiomegaly without acute pulmonary process - Venous Doppler performed negative for DVT - Laboratory data: WBC 8.4. Hemoglobin 14.5. Platelet count 298. D-dimer 0.17. Sodium 138. Potassium 4.0. BUN 18. Creatinine 0.93. Magnesium 2.3. Troponin negative x 3. proBNP 27. - Current home cardiac medications include none. - No previous echo, stress test, or cardiac catheterization available in EMR for review REVIEW OF SYSTEMS: At the time of my exam: CONSTITUTIONAL: Denies fever or chills. HEENT: Denies blurred vision, vision changes, or eye pain. Denies hemoptysis CARDIOVASCULAR: Denies chest pain. Denies orthopnea. Denies PND. Denies palpitations RESPIRATORY: Denies shortness of breath. GASTROINTESTINAL: Denies abdominal pain. Denies nausea or vomiting. HEMATOLOGIC: Denies bleeding disorders. GENITOURINARY: Denies any blood in urine. SKIN: Denies pruitis. Denies rash. PHYSICAL EXAM: VITAL SIGNS: Reviewed. GENERAL: Well-developed in no acute distress. HEENT: Head is normocephalic. Pupils are equal, round. Sclerae anicteric. Mucous membranes of the mouth are moist. Neck supple. No JVD or thyromegaly LUNGS: Respirations even and unlabored. Lungs essentially clear to auscultation bilaterally. HEART: Regular rate and rhythm. S1 and S2 heard. ABDOMEN: Soft. Nondistended. Nontender. EXTREMITIES: Normal range of motion. No clubbing or cyanosis. Peripheral pulses intact. No lower extremity edema NEUROLOGIC: Awake and alert. Oriented x 3. ASSESSMENT: Chest pain x 2 weeks, troponin negative x 3 Left leg pain, etiology unclear, venous Doppler negative for DVT Family history of CAD PLAN: An acute coronary event has been ruled out Obtain 2D echo to assess cardiac structure and function Add aspirin 81 mg daily Check lipid panel and hemoglobin A1c Patient to undergo stress echocardiogram today If negative, she may be discharged home from a cardiac standpoint Nurse practitioner note has been reviewed by physician. Signing provider agrees with the documented findings, assessment, and plan of care documented by WET AND DRY SUGAR BIN OPERATOR as a scribe. Past Medical History Past Medical History: Fibromyalgia Additional Past Medical History / Comment(s): H Pylori. History of Any Multi-Drug Resistant Organisms: None Reported Past Surgical History: Tonsillectomy, Tubal Ligation Additional Past Surgical History / Comment(s): Colonoscopy X2, EGD X4. Past Anesthesia/Blood Transfusion Reactions: No Reported Reaction, Motion Sickness Past Psychological History: No Psychological Hx Reported Smoking Status: Never smoker Past Alcohol Use History: None Reported Past Drug Use History: None Reported - Past Family History Sister(s) Family Medical History: Cancer Additional Family Medical History / Comment(s): Breast cancer. Strong family hx of cancer on paternal side. Medications and Allergies Home Medications Medication Instructions Recorded Confirmed Type Famotidine (Unknown Dose) 1 tab PO DIRECTED 08/02/24 08/03/24 History Allergies Allergy/AdvReac Type Severity Reaction Status Date / Time ampicillin Allergy Anaphylaxis Verified 09/21/24 18:02 diphenhydramine Allergy Rash/Hives Verified 09/21/24 18:02 [From Benadryl] Penicillins Allergy Anaphylaxis Verified 09/21/24 18:02 Physical Exam Vitals: Vital Signs Temp Pulse Resp BP Pulse Ox 09/22/24 09:00 86 16 107/79 98 09/22/24 07:37 98.1 F 68 16 118/85 99 09/22/24 06:53 97.8 F 70 16 124/90 99 09/22/24 02:59 98.7 F 70 18 157/91 97 09/22/24 00:48 58 L 16 159/96 99 09/21/24 22:59 66 18 145/98 99 09/21/24 17:53 98.3 F 78 18 157/75 99 Intake and Output 09/21/24 09/22/24 09/22/24 22:59 06:59 14:59 Other: Weight 68.492 kg Results 09/21/24 19:40 09/21/24 19:40 Cardiac Enzymes 09/21/24 09/21/24 09/22/24 Range/Units 19:40 19:40 00:42 AST 20 (14-36) U/L Troponin I <0.012 <0.012 (0.000-0.034) ng/mL 09/22/24 Range/Units 04:49 AST (14-36) U/L Troponin I <0.012 (0.000-0.034) ng/mL Coagulation 09/21/24 Range/Units 19:40 PT 11.3 (10.0-12.5) sec APTT 23.4 (22.0-30.0) sec CBC 09/21/24 Range/Units 19:40 WBC 8.4 (3.8-10.6) k/uL RBC 5.28 (3.80-5.40) m/uL Hgb 14.5 (11.4-16.0) gm/dL Hct 46.0 (34.0-46.0) % Plt Count 298 (150-450) k/uL Comprehensive Metabolic Panel 09/21/24 Range/Units 19:40 Sodium 138 (137-145) mmol/L Potassium 4.0 (3.5-5.1) mmol/L Chloride 101 (98-107) mmol/L Carbon Dioxide 29 (22-30) mmol/L BUN 18 H (7-17) mg/dL Creatinine 0.93 (0.52-1.04) mg/dL Glucose 93 (74-99) mg/dL Calcium 9.4 (8.4-10.2) mg/dL AST 20 (14-36) U/L ALT 22 (4-34) U/L Alkaline Phosphatase 75 (38-126) U/L Total Protein 7.6 (6.3-8.2) g/dL Albumin 4.6 (3.5-5.0) g/dL Current Medications Generic Name Dose Route Start Last Admin Trade Name Freq PRN Reason Stop Dose Admin Acetaminophen 650 mg 09/22/24 03:00 09/22/24 07:41 Acetaminophen Tab 325 Mg Tab PO 650 mg Q6HR PRN Administration Mild Pain or Fever > 100.5 Al Hydroxide/Mg Hydroxide 15 ml 09/22/24 03:00 Mag Hydrox/Al Hydrox/Simeth 30 Ml Cup PO Q6HR PRN Indigestion Alprazolam 0.25 mg 09/22/24 03:00 Alprazolam 0.25 Mg Tab PO Q6HR PRN Anxiety Aspirin 81 mg 09/22/24 10:45 Aspirin 81 Mg PO DAILY CARLOS Famotidine 20 mg 09/22/24 09:00 09/22/24 09:26 Famotidine 20 Mg Tab PO 20 mg BID CARLOS Administration Sodium Chloride 1,000 mls @ 75 mls/hr 09/22/24 03:00 09/22/24 04:18 Saline 0.9% IV 75 mls/hr .[id number] CARLOS Administration Dobutamine HCl/Dextrose 500 mg 250 mls @ 20.548 mls/hr 09/22/24 10:37 / IV Solution IV 09/22/24 14:37 .[id number] PRN Per Protocol Protocol 10 MCG/KG/MIN Morphine Sulfate 4 mg 09/22/24 03:00 Morphine Sulfate 4 Mg/Ml Syringe IV Q4HR PRN Severe Pain (Scale 7 to 10) Naloxone HCl 0.2 mg 09/22/24 03:00 Naloxone 0.4 Mg/Ml 1 Ml Vial IV Q2M PRN Opioid Reversal Ondansetron HCl 4 mg 09/22/24 03:00 Ondansetron 4 Mg/2 Ml Vial IVP Q8HR PRN Nausea And Vomiting Tramadol HCl 50 mg 09/22/24 03:00 Tramadol 50 Mg Tab PO Q6H PRN Moderate Pain (Scale 4 to 6) Intake and Output 09/21/24 09/22/24 09/22/24 22:59 06:59 14:59 Other: Weight 68.492 kg 09/21/24 19:40 09/21/24 19:40
[2024-09-22] MEDS: ASPIRIN 81 MG PO SCH (13:33)
[2024-09-22 13:57] VITALS: RESP 16
--- NOTE | 2024-09-22 14:38 | CA ---
Stress Echo Report Mary Leger Age: 59 Gender: F : 1965 Exam Date: 09/22/2024 12:12 Exam Location: [place] [facility] Ht (in): 66 Wt (lb): 151 Ordering Physician: Kerrie Hartman Referring Physician: [id number] Anchor: Elina Rose RDCS Technologist Procedure CPT: Indication: CP ICD-9 Codes: Rhythm: Patient History: CHEST PAIN, DIFFICULTY IN BREATHING, PALPITATIONS, PRIOR STROKE, HYPERCHOLESTEROLEMIA, FAMILY HX OF HEART DISEASE Cardiac Medications: Medications in past 24 hours: Contrast: Stress Results Protocol: Ranjit Total dose(mL): Exercise Duration (min:sec): 8:[address] Depression (mm): Angina Score: Mccann Score: METS: 9.3 Resting HR: 80 Resting BP: 131 / 87 Peak HR: 138 Peak BP: 185 / 90 Max Predicted HR: 162 85 % Max Predicted HR Target HR: 138 Double Product: 14209 Stress Summary: BP Response: Reason for Termination: MAX EXERTION/TARGET HR Cardiac Symptoms: EXTREMITIES TINGLING ECG Analysis Resting ECG: Stress ECG: Arrhythmia: Echo Analysis Resting Echo: Peak Echo Analysis: MEASUREMENTS (Male/Female) Normal Values CONCLUSIONS Good exercise tolerance Normal stress echocardiogram Dr. Antoni Moser MD (Electronically Signed) Final Date: 22 September 2024 14:38
[2024-09-22 15:31] VITALS: BP 132/68; PULSE 85
--- NOTE | 2024-09-22 20:29 | CA ---
Transthoracic Echo Report Name: Mary Leger Age: 59 Gender: F : 1965 Exam Date: 09/22/2024 11:57 Exam Location: [place] [facility] Ht (in): 66 Wt (lb): 151 Ordering Physician: Gifty Curran MD Attending/Referring Phys: Hemmer Chainstitch Elina Rose RDCS Procedure CPT: Indications: chest pain, cardiomegaly Cardiac Hx: Technical Quality: Good Contrast 1: Total Dose (mL): Contrast 2: Total Dose (mL): MEASUREMENTS (Male / Female) Normal Values 2D ECHO LV Diastolic Diameter PLAX 5.1 cm 4.2 - 5.9 / 3.9 - 5.3 cm LV Systolic Diameter PLAX 3.3 cm IVS Diastolic Thickness 0.7 cm 0.6 - 1.0 / 0.6 - 0.9 cm LVPW Diastolic Thickness 0.6 cm 0.6 - 1.0 / 0.6 - 0.9 cm LV Relative Wall Thickness 0.3 LVOT Diameter 2.0 cm LV Diastolic Volume MOD BP 75.6 cm??? 67 - 155 / 56 - 104 cm??? LV Systolic Volume MOD BP 26.1 cm??? 22 - 58 / 19 - 49 cm??? LV Ejection Fraction MOD BP 65.5 % >= 55 % LV Cardiac Index MOD BP 1820.1 cm???/min???m??? LV Diastolic Volume MOD 4C 69.1 cm??? LV Systolic Volume MOD 4C 25.8 cm??? LV Ejection Fraction MOD 4C 62.7 % LV Cardiac Index MOD 4C 1594.4 cm???/min???m??? LV Diastolic Length 4C 7.0 cm LV Systolic Length 4C 6.1 cm LV Diastolic Volume MOD 2C 76.7 cm??? LV Systolic Volume MOD 2C 26.3 cm??? LV Ejection Fraction MOD 2C 65.7 % LV Cardiac Index MOD 2C 1854.5 cm???/min???m??? LV Diastolic Length 2C 7.6 cm LV Systolic Length 2C 6.0 cm LA Volume 36.2 cm??? 18 - 58 / 22 - 52 cm??? LA Volume Index 20.2 cm???/m??? 16 - 28 cm???/m??? Ascending Aorta Diameter 3.4 cm DOPPLER AV Peak Velocity 124.8 cm/s AV Peak Gradient 6.2 mmHg AV Mean Velocity 93.2 cm/s AV Mean Gradient 3.7 mmHg AV Velocity Time Integral 28.0 cm AI Peak Velocity 362.8 cm/s AI Peak Gradient 52.7 mmHg AI Pressure Half Time 777.0 ms LVOT Peak Velocity 104.4 cm/s LVOT Peak Gradient 4.4 mmHg LVOT Velocity Time Integral 20.2 cm LVOT Stroke Volume 62.9 cm??? LVOT Stroke Volume Index 35.4 ml/m??? LVOT Cardiac Index 2314.3 cm???/min???m??? AV Area Cont Eq vti 2.3 cm??? AV Area Cont Eq pk 2.6 cm??? MV Area PHT 2.9 cm??? Mitral E Point Velocity 41.2 cm/s Mitral A Point Velocity 41.8 cm/s Mitral E to A Ratio 1.0 MV Deceleration Time 259.3 ms TR Peak Velocity 246.6 cm/s TR Peak Gradient 24.3 mmHg Right Atrial Pressure 5.0 mmHg Pulmonary Artery Systolic Pressu 29.3 mmHg Right Ventricular Systolic Press 29.3 mmHg FINDINGS Left Ventricle Left ventricular ejection fraction is estimated at 60-65 %. Left ventricular cavity size normal. Left ventricular wall thickness normal. No obvious regional wall motion abnormalities. Right Ventricle Normal right ventricular size and function. Right ventricular systolic pressure within normal limits. Right Atrium Normal right atrial size. Left Atrium Normal left atrial size. Mitral Valve Structurally normal mitral valve. No evidence for mitral valve prolapse. No mitral stenosis. Mild to moderate mitral regurgitation Aortic Valve Trileaflet aortic valve. Mild aortic regurgitation Tricuspid Valve Structurally normal tricuspid valve. No tricuspid stenosis. Mild tricuspid regurgitation. Pulmonic Valve Pulmonic valve not well visualized. No pulmonic stenosis. Trace pulmonic regurgitation. Pericardium No pericardial effusion. Aorta Normal size aortic root and proximal ascending aorta. CONCLUSIONS Normal biventricular systolic function Mild aortic regurgitation Mild to moderate mitral regurgitation Previewed by: Dr. Antoni Moser MD (Electronically Signed) Final Date: 22 September 2024 20:28
== END 2024-09-22 16:40 | disposition home or self-care (01) ==
LOC: EC 17:18 → 6NMEDSUR 09-22 03:00
PROVIDERS: ADMIT Hospitalist; ATTEND Hospitalist
DX: R07.9 Chest pain, unspecified (principal); M79.605 Pain in left leg; I51.7 Cardiomegaly; I45.10 Unspecified right bundle-branch block; M79.7 Fibromyalgia; Z79.82 Long term (current) use of aspirin; Z80.3 Family history of malignant neoplasm of breast; Z82.49 Family history of ischemic heart disease and other diseases of the circulatory system; Z86.16 Personal history of COVID-19; Z88.0 Allergy status to penicillin; Z79.899 Other long term (current) drug therapy
CPT/HCPCS: 96374; 96375; 99285; 36415 ×2; 93005; 93306; 93351; 85379; 83880; 80053; 83605; 83690; 83735; 84484 ×2; 85025; 85610; 85730; 81003; 87636; 71046; 93970; G0378; J2060; J2270; J2405; J3490; J1885

== ENCOUNTER → 2024-09-29 | Outpatient (CLI) | payer OTHER ==
--- NOTE | 2024-09-29 15:45 | XR ---
EXAMINATION TYPE: XR thoracic spine 2V DATE OF EXAM: 09/29/2024 3:41 PM COMPARISON: None. CLINICAL INDICATION: Female, 59 years old with history of G89.29 OTHER CHRONIC PAIN M54.50 LOW BACK P AIN, UN, TECHNIQUE: Frontal, lateral, and swimmer's view of thoracic spine are obtained. FINDINGS: Thoracic spine show satisfactory alignment without evidence of acute fracture or dislocatio n. Vertebral body heights are preserved. Disc spaces are well preserved. Visualized ribs are unrem arkable. IMPRESSION: No acute fracture or dislocation is seen in the thoracic spine. ICD 10 NO FRACTURE, INIT IAL EVALUATION [facility], , 09/29/2024 3:43 PM
--- NOTE | 2024-09-29 15:46 | XR ---
EXAMINATION TYPE: XR lumbosacral spine min 4V DATE OF EXAM: 09/29/2024 3:41 PM COMPARISON: None. CLINICAL INDICATION: Female, 59 years old with history of G89.29 OTHER CHRONIC PAIN M54.50 LOW BACK P AIN, UN, TECHNIQUE: Frontal, lateral, and oblique images of the lumbar spine are obtained. FINDINGS: There are 5 lumbar type vertebral bodies identified. The lumbar spine shows satisfactory alignment without evidence of acute fracture or dislocation. Vertebral body heights are within normal limits. Moderate degenerative narrowing L4-5 and L5-S1. 4 mm anterolisthesis L4-L5 related to severe facet joint arthropathy. The overlying soft tissue appears unremarkable. IMPRESSION: No acute fracture or dislocation is seen in the lumbar spine.ICD 10 NO FRACTURE, INITIAL EVALUATION [facility], , 09/29/2024 3:44 PM
== END | disposition home or self-care (01) ==
LOC: RADXRMAIN 11:25
PROVIDERS: ATTEND Family Medicine
DX: M54.50 Low back pain, unspecified (principal); G89.29 Other chronic pain
CPT/HCPCS: 72070; 72110

== ENCOUNTER → 2024-10-05 | Outpatient (CLI) | payer OTHER ==
[2024-10-05 20:19] LABS: Gliadin AB IgA, Deaminated Negative (Negative); Gliadin AB IgA, Unit <0.5 U/mL
[2024-10-05 20:20] LABS: Gliadin AB IgG, Deaminated Negative (Negative); Gliadin AB IgG, Unit <0.4 U/mL
== END | disposition home or self-care (01) ==
LOC: LABWHC1 12:51
PROVIDERS: ATTEND Internal Medicine Gastroenterology
DX: R10.13 Epigastric pain (principal)
CPT/HCPCS: 36415; 83516

== ENCOUNTER → 2024-10-12 | Outpatient (CLI) | payer OTHER ==
--- NOTE | 2024-10-12 10:25 | US ---
EXAMINATION TYPE: US pelvis complete transvag DATE OF EXAM: 10/12/2024 COMPARISON: NONE CLINICAL INDICATION: Female, 59 years old with history of R10.2 PELVIC AND PERINEAL PAIN; Patient has pelvic pain. Pt states she has some light pinkish/red bleeding. . TECHNIQUE: Transvaginal (TV) and Transabdominal (TA) . Transabdominal grayscale sonographic images of the pelvis were acquired. Transvaginal sonographic im ages were medically necessary to better assess the following anatomy: all pelvic structures Doppler imaging: Not performed. FINDINGS: Date of LMP: at age 45 EXAM MEASUREMENTS: Uterus: 5.7 x 4.2 x 2.6 cm Endometrial Stripe: 0.34 cm Right Ovary: Obscured by bowel gas Left Ovary: Obscured by bowel gas 1. Uterus: Anteverted. Myometrium shows mild diffuse heterogeneity. *Some punctate calcifications in the cervix. 2. Endometrium: 0.34 cm. *Anechoic fluid seen within: 1.7 x 1.6 x 0.3 cm. 3. Right Ovary: Obscured 4. Left Ovary: Obscured 5. Bilateral Adnexa: Appear wnl 6. Posterior cul-de-sac: Appears wnl IMPRESSION: 1. Some fluid within the uterine cavity. Endometrial stripe itself appears to be relatively thin at 3 .4 mm. 2. Punctate calcifications in the cervix could reflect sequela of prior infection or prior instrument ation. 3. Neither ovary could be visualized. [facility], , 10/12/2024 10:23 AM
== END | disposition home or self-care (01) ==
LOC: RADUSWWP 09:13
PROVIDERS: ATTEND Family Medicine
DX: N88.8 Other specified noninflammatory disorders of cervix uteri (principal)
CPT/HCPCS: 76830; 76856

== ENCOUNTER → 2024-10-18 | Outpatient (CLI) | payer OTHER ==
[2024-10-18 18:07] LABS: Basophils # (A) 0.03 X 10*3/uL (0.00-0.10); Basophils % (A) 0.5 %; Eosinophils # (A) 0.09 X 10*3/uL (0.04-0.35); Eosinophils % (A) 1.4 %; HCT 44.2 % (37.2-46.3); HGB 14.2 g/dL (12.0-15.0); Lymphocytes # (A) 1.95 X 10*3/uL (0.90-5.00); Lymphocytes % (A) 30.3 %; MCH 27.7 pg (27.0-32.0); MCHC 32.1 g/dL (32.0-37.0); MCV 86.3 FL (80.0-97.0); Monocytes # (A) 0.61 X 10*3/uL (0.20-1.00); Monocytes % (A) 9.5 %; NRBC Per 100 WBC 0 X 10*3/uL (0.00-0.01); Neutrophils # (A) 3.73 X 10*3/uL (1.80-7.70); Platelet Count 305 X 10*3/uL (140-440); RBC 5.12 X 10*6/uL (4.10-5.20); RDW 13.7 % (11.5-14.5); WBC 6.43 X 10*3/uL (4.50-10.00)
[2024-10-18 18:19] LABS: ALT 15 U/L (8-44); AST 15 U/L (13-35); Albumin 4.4 g/dL (3.8-4.9); Albumin/Globulin Ratio 1.63 Ratio (1.60-3.17); Alkaline Phosphatase 76 U/L (41-126); BUN/Creat Ratio 20.17 Ratio (12.00-20.00); Blood Urea Nitrogen 12.1 mg/dL (9.0-27.0); C Reactive Protein <0.30 mg/dL (0.00-0.80); Calcium 9.4 mg/dL (8.7-10.3); Carbon Dioxide 26.2 mmol/L (21.6-31.8); Chloride 103 mmol/L (96-109); Globulin 2.7 g/dL (1.6-3.3); Glucose 96 mg/dL (70-110); Potassium 3.9 mmol/L (3.5-5.5); Sodium 140 mmol/L (135-145); Total Bilirubin 0.9 mg/dL (0.3-1.2); Total Protein 7.1 g/dL (6.2-8.2)
[2024-10-18 19:25] LABS: Erythrocyte Sedimentation Rate 4 mm/Hr (0-30)
== END | disposition home or self-care (01) ==
LOC: LABWHC1 14:10
PROVIDERS: ATTEND Internal Medicine Gastroenterology
DX: R14.0 Abdominal distension (gaseous) (principal)
CPT/HCPCS: 36415; 80053; 85025; 85652; 86140

== ENCOUNTER → 2024-10-19 | Outpatient (CLI) | payer OTHER ==
--- NOTE | 2024-10-19 13:35 | US ---
EXAMINATION TYPE: US abdomen complete DATE OF EXAM: 10/19/2024 COMPARISON: CT, US 2023 CLINICAL INDICATION: Female, 59 years old with history of R14.0 ABDOMINAL DISTENSION (GASEOUS); Bloat ing. Hx kidney stones, right kidney cyst. TECHNIQUE: Grayscale and color Doppler imaging of the abdomen was performed. FINDINGS: EXAM MEASUREMENTS: Liver Length: 14.4 cm Gallbladder Wall: 0.20 cm CBD: 0.63 cm, color Doppler imaging was utilized to isolate the common bile duct for measurement. Spleen: Obscured Right Kidney: 10.8 x 4.8 x 4.6 cm Left Kidney: 10.4 x 4.9 x 5.7 cm BREAST BUFFER NOTES: Exam is limited. Pancreas: *Head and tail were obscured. Liver: No abnormalities seen Gallbladder: Appears anechoic Evidence for sonographic Mina's sign: No CBD: Measures upper limits* Spleen: Obscured Right Kidney: *Anechoic area compatible with small cyst seen upper pole: 1.3 x 1.1 x 1.2 cm. Left Kidney: Limited due to gas and rib shadow Upper IVC: wnl Abd Aorta: *Proximal segment appears ectatic. Iliac arteries were obscured. IMPRESSION: 1. Small cortical renal cyst. 2. No acute abdomen ultrasound abnormality. [facility], , 10/19/2024 1:32 PM
== END | disposition home or self-care (01) ==
LOC: RADUSWWP 09:26
PROVIDERS: ATTEND Internal Medicine Gastroenterology
DX: N28.1 Cyst of kidney, acquired (principal)
CPT/HCPCS: 76700

== ENCOUNTER → 2024-10-31 | Outpatient (CLI) | payer OTHER ==
--- NOTE | 2024-10-31 12:58 | MM ---
Reason for Exam: Clinical finding. Last screening mammogram was performed 4 month(s) ago. Patient History: Menarche at age 16. First Full-Term at age 27. Postmenopausal. Maternal cousin had breast cancer. Maternal cousin had breast cancer. Maternal cousin had breast cancer. Maternal aunt had breast cancer at or over age 50. Sister had breast cancer under age 50. Risk Values: Lise 5 year model risk: 1.6%. NCI Lifetime model risk: 9.4%. Tissue Density: The breasts are heterogeneously dense, which may obscure small masses. Findings: Analyzed By CAD. No evidence for mass or distortion. No suspicious microcalcifications. Ultrasound is recommended involving the right lateral breast at this site of patient's reported clinical finding of pain. Overall Assessment: Incomplete: need additional imaging evaluation, BI-RAD 0 Management: Diagnostic Breast Ultrasound of the right breast. . Results were given to the patient verbally at the time of exam. Patient should continue monthly self-breast exams. A clinical breast exam by your physician is recommended on an annual basis. This exam should not preclude additional follow-up of suspicious palpable abnormalities. Note on Lise scores and lifetime risk: 1. A Lise score greater than 3% is considered moderate risk. If this is the case, consider specialist referral to assess eligibility for a risk reducing agent. 2. If overall lifetime risk for the development of breast cancer is 20% or higher, the patient may qualify for future screening with alternating mammogram and breast MRI. [facility], , 10/31/2024 12:55 PM. Electronically signed and approved by: Tung Man M.D. Radiologis
--- NOTE | 2024-10-31 13:25 | USB ---
Reason for Exam: Clinical finding. Patient History: Menarche at age 16. First Full-Term at age 27. Postmenopausal. Maternal cousin had breast cancer. Maternal cousin had breast cancer. Maternal cousin had breast cancer. Maternal aunt had breast cancer at or over age 50. Sister had breast cancer under age 50. Risk Values: Lise 5 year model risk: 1.6%. NCI Lifetime model risk: 9.4%. Technique: Method: Targeted. Prior Study Comparison: 06/30/2024 Bilateral MG 3D diag mammo w/cad [facility], [facility]. Findings: The lateral section of the breast of the right breast, the axilla of the right breast and the retroareolar of the right breast were scanned. No solid or cystic masses are identified.. Overall Assessment: Negative, BI-RAD 1 Management: Screening Mammogram of both breasts in 1 year. A clinical breast exam by your physician is recommended on an annual basis and results should be correlated with mammographic findings. This exam should not preclude additional follow-up of suspicious palpable abnormalities. Results were given to the patient verbally at the time of exam. [facility], , 10/31/2024 1:22 PM. Electronically signed and approved by: Tung Man M.D. Radiologis
== END | disposition home or self-care (01) ==
LOC: RADMAMWWP 12:31
PROVIDERS: ATTEND Family Medicine
DX: N64.4 Mastodynia (principal); R92.333 Mammographic heterogeneous density, bilateral breasts; Z78.0 Asymptomatic menopausal state; Z80.3 Family history of malignant neoplasm of breast
CPT/HCPCS: 77062; 77066

== ENCOUNTER → 2024-11-24 | Outpatient (CLI) | payer OTHER ==
--- NOTE | 2024-11-24 10:50 | XR ---
EXAMINATION TYPE: XR cervical spine comp DATE OF EXAM: 11/24/2024 10:11 AM COMPARISON: None CLINICAL INDICATION: Female, 59 years old with history of M54.2 CERVICALGIA; [facility], pain TECHNIQUE: The cervical spine was imaged in frontal, lateral, odontoid and bilateral oblique. FINDINGS: The osseous structures show normal alignment without evidence of an acute fracture. There are osteoph ytes noted at C5-C6 in the cervical spine on the anterior and lateral aspects of the vertebral bodies . The intervertebral disk spaces are narrowed at C5-C6 levels. Pedicles are intact. Soft tissues are within normal limits. The odontoid appears intact. IMPRESSION: 1. No fracture or dislocation. 2. Moderate C5-C6 degenerative disc disease changes of the cervical spine. [facility], , 11/24/2024 10:48 AM
== END | disposition home or self-care (01) ==
LOC: RADXRMAIN 09:53
PROVIDERS: ATTEND Family Medicine
DX: M50.322 Other cervical disc degeneration at C5-C6 level (principal)
CPT/HCPCS: 72050

== ENCOUNTER 2024-12-18 12:12 | Emergency (ER) | payer OTHER ==
--- NOTE | 2024-12-18 12:50 | ED ---
General Adult HPI - General Chief complaint: Headache Stated complaint: Headache Time Seen by Provider: 12/18/24 12:32 Source: patient, RN notes reviewed Mode of arrival: ambulatory Limitations: language barrier - History of Present Illness Onset/Timin -: week(s) - Related Data Home Medications Medication Instructions Recorded Confirmed Dicyclomine [Bentyl] 10 mg PO TID 09/22/24 09/22/24 Pantoprazole [Protonix] 40 mg PO AC-BID 09/22/24 09/22/24 Previous Rx's Medication Instructions Recorded Aspirin 81 mg PO DAILY tab 09/22/24 Allergies Allergy/AdvReac Type Severity Reaction Status Date / Time ampicillin Allergy Anaphylaxis Verified 12/18/24 12:19 diphenhydramine Allergy Rash/Hives Verified 12/18/24 12:19 [From Benadryl] Penicillins Allergy Anaphylaxis Verified 12/18/24 12:19 Review of Systems ROS Statement: Those systems with pertinent positive or pertinent negative responses have been documented in the HPI. ROS Other: All systems not noted in ROS Statement are negative. Past Medical History Past Medical History: Fibromyalgia Additional Past Medical History / Comment(s): H Pylori. History of Any Multi-Drug Resistant Organisms: None Reported Past Surgical History: Tonsillectomy, Tubal Ligation Additional Past Surgical History / Comment(s): Colonoscopy X2, EGD X4. Past Anesthesia/Blood Transfusion Reactions: No Reported Reaction, Motion Sickness Past Psychological History: No Psychological Hx Reported Smoking Status: Never smoker Past Alcohol Use History: None Reported Past Drug Use History: None Reported - Past Family History Sister(s) Family Medical History: Cancer Additional Family Medical History / Comment(s): Breast cancer. Strong family hx of cancer on paternal side. General Exam Limitations: language barrier Course Vital Signs 12/18/24 12:13 Temperature 98.2 F Pulse Rate 101 H Respiratory 16 Rate Blood Pressure 144/82 O2 Sat by Pulse 97 Oximetry Disposition Referrals: Archana West MD [Primary Care Provider] - 1-2 days
--- NOTE | 2024-12-18 12:51 | ED ---
Headache HPI - General Chief Complaint: Headache Stated Complaint: Headache Time Seen by Provider: 12/18/24 12:32 Mode of arrival: ambulatory Limitations: language barrier - History of Present Illness Initial Comments: This is a 59-year-old female with history of fibromyalgia presenting for right head/neck pain x 7 weeks. Patient states pain radiates to her right teeth and neck, stating that it feels like there is "sinking in her neck" patient states her face "feels swollen". Endorses worsening pain with neck/head movement. Endorses swelling near her eye and her right neck/shoulder, described as squeezing pain (10/10) that has been worsening for the past 2 days. Patient notes numbness and weakness in her right upper and lower extremity, stating her right upper extremity has been weak/numb for 7 weeks with her lower extremity being weak/numb for 4 weeks. Also mentions son numbness in her right face. Some blurred vision in her right eye. Patient denies history of similar symptoms or recent trauma to her head/neck. Endorses use of Tylenol with minimal relief. Denies fever, chills, dizziness, chest pain, dyspnea, abdominal pain, N/V/D, urinary symptoms. 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 MD Complaint: headache Onset/Timin -: week(s) - Related Data Home Medications Medication Instructions Recorded Confirmed Dicyclomine [Bentyl] 10 mg PO TID 09/22/24 09/22/24 Pantoprazole [Protonix] 40 mg PO AC-BID 09/22/24 09/22/24 Previous Rx's Medication Instructions Recorded Aspirin 81 mg PO DAILY tab 09/22/24 Cyclobenzaprine [Flexeril] 10 mg PO TID PRN #15 tab 12/18/24 Ibuprofen [Motrin] 600 mg PO Q8HR PRN #30 tab 12/18/24 Lidocaine 4% Patch 1 patch TOPICAL Q24H #10 patch 12/18/24 Allergies Allergy/AdvReac Type Severity Reaction Status Date / Time ampicillin Allergy Anaphylaxis Verified 12/18/24 12:19 diphenhydramine Allergy Rash/Hives Verified 12/18/24 12:19 [From Benadryl] Penicillins Allergy Anaphylaxis Verified 12/18/24 12:19 Review of Systems ROS Statement: Those systems with pertinent positive or pertinent negative responses have been documented in the HPI. ROS Other: All systems not noted in ROS Statement are negative. Past Medical History Past Medical History: Fibromyalgia Additional Past Medical History / Comment(s): H Pylori. History of Any Multi-Drug Resistant Organisms: None Reported Past Surgical History: Tonsillectomy, Tubal Ligation Additional Past Surgical History / Comment(s): Colonoscopy X2, EGD X4. Past Anesthesia/Blood Transfusion Reactions: No Reported Reaction, Motion Sickness Past Psychological History: No Psychological Hx Reported Smoking Status: Never smoker Past Alcohol Use History: None Reported Past Drug Use History: None Reported - Past Family History Sister(s) Family Medical History: Cancer Additional Family Medical History / Comment(s): Breast cancer. Strong family hx of cancer on paternal side. General Exam Limitations: language barrier General appearance: alert, in no apparent distress Head exam: Present: atraumatic, normocephalic, normal inspection Eye exam: Present: normal appearance, PERRL, EOMI. Absent: scleral icterus, conjunctival injection, nystagmus, periorbital swelling, periorbital tenderness Pupils: Present: normal accommodation ENT exam: Present: normal exam, normal oropharynx, mucous membranes dry Neck exam: Present: normal inspection. Absent: tenderness, meningismus, lymphadenopathy Respiratory exam: Present: normal lung sounds bilaterally. Absent: respiratory distress, wheezes, rales, rhonchi, stridor, accessory muscle use, decreased breath sounds, prolonged expiratory Cardiovascular Exam: Present: regular rate, normal rhythm, normal heart sounds. Absent: systolic murmur, diastolic murmur, rubs, gallop, clicks GI/Abdominal exam: Present: soft, normal bowel sounds. Absent: distended, tenderness, guarding, rebound, rigid Extremities exam: Present: full ROM, normal capillary refill, other (Patient notes paresthesia throughout right upper and lower extremity with distal vascular and motor function intact. Bilateral radial and dorsalis pedis pulse +2, capillary refill less than 2 seconds.). Absent: tenderness, pedal edema, joint swelling, calf tenderness Back exam: Present: muscle spasm (Positive diffuse right trapezius muscle spasm and tenderness.), paraspinal tenderness, vertebral tenderness (Positive cervical spine tenderness without obvious crepitus or step-off). Absent: full ROM (Patient notes L ROM with head or rotation, flexion, extension) Neurological exam: Present: alert, oriented X3, CN II-XII intact (Patient notes right facial paresthesia with normal. Normal bilateral motor function of facial muscles), normal gait, other (Drifting of right arm noted. No abnormality noted in speech with symmetrical facial motor function) Psychiatric exam: Present: normal affect, normal mood Skin exam: Present: warm, dry, intact, normal color. Absent: rash Course Vital Signs 12/18/24 12/18/24 12/18/24 12:13 14:13 15:05 Temperature 98.2 F 98.7 F Pulse Rate 101 H 66 70 Respiratory 16 17 20 Rate Blood Pressure 144/82 150/88 173/82 O2 Sat by Pulse 97 99 99 Oximetry 12/18/24 15:30 Temperature 98.2 F Pulse Rate 72 Respiratory 17 Rate Blood Pressure 156/82 O2 Sat by Pulse 98 Oximetry Medical Decision Making - Medical Decision Making Was pt. sent in by a medical professional or institution (, PA, DYE TANK TENDER, urgent care, hospital, or half-way...) When possible be specific @ -No Did you speak to anyone other than the patient for history (EMS, parent, family, police, friend...)? What history was obtained from this source @ -No Did you review nursing and triage notes (agree or disagree)? Why? @ -I reviewed and agree with nursing and triage notes Were old charts reviewed (outside hosp., previous admission, EMS record, old EKG, old radiological studies, urgent care reports/EKG's, half-way records)? Report findings @ -No old charts were reviewed Differential Diagnosis (chest pain, altered mental status, abdominal pain women, abdominal pain men, vaginal bleeding, weakness, fever, dyspnea, syncope, headache, dizziness, GI bleed, back pain, seizure, CVA, palpatations, mental health, musculoskeletal)? @ -Differential Headache: Migraine, tension, cluster, carbon monoxide, central venous thrombosis, pension karma temporal arteritis, acute closure glaucoma, intercranial hemorrhage, mastoiditis, sinusitis, head injury, this is not meant to be an all-inclusive list. EKG interpreted by me (3pts min.). @ -Not done X-rays interpreted by me (1pt min.). @ -None done CT interpreted by me (1pt min.). @ -Head/cervical spine CT shows no acute intracranial process or evidence of cervical spine fracture. Mild multilevel DDD and right apical pulmonary nodule noted. U/S interpreted by me (1pt. min.). @ -None done What testing was considered but not performed or refused? (CT, X-rays, U/S, labs)? Why? @ -None What meds were considered but not given or refused? Why? @ -None Did you discuss the management of the patient with other professionals (professionals i.e. DrJanice, PA, DYE TANK TENDER, lab, RT, psych nurse, licensed social worker, flight engineer helicopter, teacher, chief credit officer, caser)? Give summary @ -No Was smoking cessation discussed for >3mins.? @ -No Was critical care preformed (if so, how long)? @ -No Were there social determinants of health that impacted care today? How? (Homelessness, low income, unemployed, alcoholism, drug addiction, transportation, low edu. Level, literacy, decrease access to med. care, care home, rehab)? @ -No Was there de-escalation of care discussed even if they declined (Discuss DNR or withdrawal of care, Hospice)? DNR status @ -No What co-morbidities impacted this encounter? (DM, HTN, Smoking, COPD, CAD, Cancer, CVA, ARF, Chemo, Hep., AIDS, mental health diagnosis, sleep apnea, morbid obesity)? @ -None Was patient admitted / discharged? Hospital course, mention meds given and route, prescriptions, significant lab abnormalities, going to OR and other pertinent info. @ -Patient initially provided IV normal saline, Norflex and lidocaine patch for pain/muscle spasm. Provided additional IV Toradol and p.o. Tylenol for ongoing pain. Prior to discharge, patient provided IV Toradol, Decadron, Reglan and discharged with T3 starter pack. Head/cervical spine CT shows no acute intracranial process or evidence of cervical spine fracture. Mild multilevel DDD and right apical pulmonary nodule noted. Motrin, Flexeril and lidocaine patches sent to patient's pharmacy. Advised follow-up with PCP in the next 24- 48 hours for further evaluation management. Discussed patient with Dr. Angelo. Undiagnosed new problem with uncertain prognosis? @ -No Drug Therapy requiring intensive monitoring for toxicity (Heparin, Nitro, Insulin, Cardizem)? @ -No Were any procedures done? @ -No Diagnosis/symptom? @ -Tension headache Acute, or Chronic, or Acute on Chronic? @ -Acute Uncomplicated (without systemic symptoms) or Complicated (systemic symptoms)? @ -Complicated Side effects of treatment? @ -No Exacerbation, Progression, or Severe Exacerbation? @ -No Poses a threat to life or bodily function? How? (Chest pain, [place], [place], pneumonia, PE, COPD, DKA, ARF, appy, cholecystitis, CVA, Diverticulitis, Homicidal, Suicidal, threat to staff... and all critical care pts) @ -No Disposition Clinical Impression: Tension headache Disposition: HOME SELF-CARE Condition: Fair Instructions (If sedation given, give patient instructions): Acute Headache (ED), Muscle Spasm (ED) Additional Instructions: Apply warm compress/heating pad to affected area on neck/shoulder for 10 minutes up to 4 times daily. Gentle massage and stretching of right shoulder/neck also recommended. Follow-up with primary care/orthopedics for any ongoing or worsening symptoms. Prescriptions: Cyclobenzaprine [Flexeril] 10 mg PO TID PRN #15 tab PRN Reason: Spasms Lidocaine 4% Patch 1 patch TOPICAL Q24H #10 patch Ibuprofen [Motrin] 600 mg PO Q8HR PRN #30 tab PRN Reason: Pain Is patient prescribed a controlled substance at d/c from ED?: No Referrals: Archana West MD [Primary Care Provider] - 1-2 days Dada Calle DO [Doctor of Osteopathic Medicine] - 1-2 days Time of Disposition: 14:24
[2024-12-18] MEDS: SODIUM CHLORIDE 0.9% 1,000 ML IV STA (13:03)
[2024-12-18] MEDS: LIDOCAINE 4% PATCH TOPICAL ONE ×2 (13:04→13:31)
[2024-12-18] MEDS: ORPHENADRINE 30 MG/ML 2 ML VIAL IVP STA (13:06)
--- NOTE | 2024-12-18 13:32 | CT ---
EXAMINATION TYPE: CT brain cspine wo con DATE OF EXAM: 12/18/2024 1:24 PM COMPARISON: None. CLINICAL INDICATION: Female, 59 years old with history of pain; HEADACHE/ PAIN, pain TECHNIQUE: Brain: Multiple axial CT images of the brain were obtained without IV contrast. Cspine: Axial CT images from the skull base to the inferior aspect of T2 we obtained without intraven ous contrast. Coronal and sagittal reformatted images were also reviewed. . CT DLP: 1193.7 mGycm, Automated exposure control for dose reduction was used. FINDINGS: Brain: Extra-axial spaces: No abnormal extra-axial fluid collections. Ventricular system: Within normal limits Cerebral parenchyma: No acute intraparenchymal hemorrhage or mass effect. The george-white junction is well differentiated. Cerebellum: Unremarkable. Mass effect: No evidence of midline shift. Intracranial vasculature: unremarkable Soft tissues: Normal. Calvarium/osseous structures: No depressed skull fracture. Paranasal sinuses and mastoid air cells: Clear. Visualized orbits: Orbital contents are intact. Cervical spine: Fracture: None. Osseous structures: Multilevel degenerative disc disease changes with endplate spurring and disc oste ophyte complex's. Vertebral alignment: Within normal limits. Spinal canal/Neural Foramina: No evidence of significant spinal canal narrowing. No evidence for sign ificant neural foraminal stenosis. Neck soft tissues: Prevertebral soft tissues are within normal limits. Other: The airway is patent. Right apical 7 x 4 mm pulmonary nodule. IMPRESSION: No acute intracranial process. No evidence of cervical spine fracture. Mild multilevel degenerative disc disease. Right apical pulmonary nodule measuring average 6 mm follow-up low-dose lung cancer screening recomme [facility] for evaluation of the chest. [facility], , 12/18/2024 1:30 PM
[2024-12-18] MEDS: ACETAMINOPHEN TAB 500 MG TAB PO STA (14:05)
[2024-12-18] MEDS: KETOROLAC 15 MG/ML 1 ML VIAL IVP STA ×2 (14:07→15:13)
[2024-12-18] MEDS: ACET/COD 300 MG/30 MG STARTER PACK 6 TAB BTL PO STA (15:10)
[2024-12-18] MEDS: METOCLOPRAMIDE 5 MG/ML 2 ML VIAL IVP STA (15:12)
[2024-12-18] MEDS: DEXAMETHASONE SOD PHOSPHATE 10 MG/ML 1 ML VIAL IVP STA (15:12)
[2024-12-18 15:34] VITALS: BP 156/82; PULSE 72; RESP 17; TEMP 98.2
== END 2024-12-18 15:32 ==
LOC: EC 12:12
DX: G44.209 Tension-type headache, unspecified, not intractable (principal); Z88.0 Allergy status to penicillin; Z88.8 Allergy status to other drugs, medicaments and biological substances
CPT/HCPCS: 99284; 96374; 96375 ×3; 96376; 96361; 72125; 70450; J1100; J2360; J2765; J1885

== ENCOUNTER 2024-12-20 08:45 | Emergency (ER) | payer OTHER ==
--- NOTE | 2024-12-20 10:10 | ED ---
General Adult HPI - General Chief complaint: Neck Pain/Injury Stated complaint: allergic reaction Time Seen by Provider: 12/20/24 09:00 Source: patient, RN notes reviewed Mode of arrival: ambulatory Limitations: language barrier - History of Present Illness Initial comments: 59-year-old female presents emergency department chief complaint allergic reacti on. Patient was seen here recently for neck pain, tension headache. Patient was given medication states that she felt better but states that she has been taking the Tylenol codeine Flexeril and states that it is causing her to feel swollen. Patient states she feels like she is having allergic reaction she states she denies any difficulty swallowing or breathing but she just feels swollen in her face and neck. Denies abdominal pain states that she has normal gastroenterology that she sees and has stomach issues. Patient denies any dysuria no rashes no other complaints. - Related Data Home Medications Medication Instructions Recorded Confirmed Dicyclomine [Bentyl] 10 mg PO TID 09/22/24 09/22/24 Pantoprazole [Protonix] 40 mg PO AC-BID 09/22/24 09/22/24 Previous Rx's Medication Instructions Recorded Aspirin 81 mg PO DAILY tab 09/22/24 Cyclobenzaprine [Flexeril] 10 mg PO TID PRN #15 tab 12/18/24 Ibuprofen [Motrin] 600 mg PO Q8HR PRN #30 tab 12/18/24 Lidocaine 4% Patch 1 patch TOPICAL Q24H #10 patch 12/18/24 predniSONE 50 mg PO DAILY #5 tab 12/20/24 Allergies Allergy/AdvReac Type Severity Reaction Status Date / Time ampicillin Allergy Anaphylaxis Verified 12/18/24 12:19 diphenhydramine Allergy Rash/Hives Verified 12/18/24 12:19 [From Benadryl] Penicillins Allergy Anaphylaxis Verified 12/18/24 12:19 Review of Systems ROS Statement: Those systems with pertinent positive or pertinent negative responses have been documented in the HPI. ROS Other: All systems not noted in ROS Statement are negative. Past Medical History Past Medical History: Fibromyalgia Additional Past Medical History / Comment(s): H Pylori. History of Any Multi-Drug Resistant Organisms: None Reported Past Surgical History: Tonsillectomy, Tubal Ligation Additional Past Surgical History / Comment(s): Colonoscopy X2, EGD X4. Past Anesthesia/Blood Transfusion Reactions: No Reported Reaction, Motion Sickness Past Psychological History: No Psychological Hx Reported Smoking Status: Never smoker Past Alcohol Use History: None Reported Past Drug Use History: None Reported - Past Family History Sister(s) Family Medical History: Cancer Additional Family Medical History / Comment(s): Breast cancer. Strong family hx of cancer on paternal side. General Exam Limitations: language barrier General appearance: alert, in no apparent distress Head exam: Present: atraumatic, normocephalic, normal inspection Eye exam: Present: normal appearance, PERRL, EOMI. Absent: scleral icterus, conjunctival injection, periorbital swelling ENT exam: Present: normal exam, normal oropharynx, mucous membranes moist Neck exam: Present: normal inspection, full ROM. Absent: tenderness, meningismus, lymphadenopathy Respiratory exam: Present: normal lung sounds bilaterally. Absent: respiratory distress, wheezes, rales, rhonchi, stridor Cardiovascular Exam: Present: regular rate, normal rhythm, normal heart sounds. Absent: systolic murmur, diastolic murmur, rubs, gallop, clicks GI/Abdominal exam: Present: soft, normal bowel sounds. Absent: distended, tenderness, guarding, rebound, rigid Course Vital Signs 12/20/24 08:56 Temperature 98.5 F Pulse Rate 87 Respiratory 20 Rate Blood Pressure 144/93 O2 Sat by Pulse 98 Oximetry Medical Decision Making - Medical Decision Making Was pt. sent in by a medical professional or institution (KIARA Al, CHEMICAL MIXER, urgent care, hospital, or jail...) When possible be specific @ -No Did you speak to anyone other than the patient for history (EMS, parent, family, police, friend...)? What history was obtained from this source @ -No Did you review nursing and triage notes (agree or disagree)? Why? @ -I reviewed and agree with nursing and triage notes Were old charts reviewed (outside hosp., previous admission, EMS record, old EKG, old radiological studies, urgent care reports/EKG's, jail records)? Report findings @ -CT head neck from recent ER visit showing no acute process Differential Diagnosis (chest pain, altered mental status, abdominal pain women, abdominal pain men, vaginal bleeding, weakness, fever, dyspnea, syncope, headache, dizziness, GI bleed, back pain, seizure, CVA, palpatations, mental health, musculoskeletal)? @ -Allergic reaction, muscle strain, neck pain, EKG interpreted by me (3pts min.). @ -None X-rays interpreted by me (1pt min.). @ -None done CT interpreted by me (1pt min.). @ -None done U/S interpreted by me (1pt. min.). @ -None done What testing was considered but not performed or refused? (CT, X-rays, U/S, labs)? Why? @ -None What meds were considered but not given or refused? Why? @ -None Did you discuss the management of the patient with other professionals (professionals i.e. , PA, CHEMICAL MIXER, lab, RT, psych nurse, criminal justice social worker, admiralty lawyer, teacher, chief technology officer, returned case inspector)? Give summary @ -No Was smoking cessation discussed for >3mins.? @ -No Was critical care preformed (if so, how long)? @ -No Were there social determinants of health that impacted care today? How? (Homelessness, low income, unemployed, alcoholism, drug addiction, transportation, low edu. Level, literacy, decrease access to med. care, detention, re hab)? @ -No Was there de-escalation of care discussed even if they declined (Discuss DNR or withdrawal of care, Hospice)? DNR status @ -No What co-morbidities impacted this encounter? (DM, HTN, Smoking, COPD, CAD, Cancer, CVA, ARF, Chemo, Hep., AIDS, mental health diagnosis, sleep apnea, morbid obesity)? @ -None Was patient admitted / discharged? Hospital course, mention meds given and route, prescriptions, significant lab abnormalities, going to OR and other pertinent info. @ -[Discharge patient presented for possible depression, neck pain. She does have reproducible neck pain with movement. Patient is able to swallow without difficulty felt improved after this lidocaine and Solu-Medrol. Patient was discharged on steroids advised not to take any further Tylenol codeine or Flexeril as she complains of reaction from this. Undiagnosed new problem with uncertain prognosis? @ -No Drug Therapy requiring intensive monitoring for toxicity (Heparin, Nitro, Insulin, Cardizem)? @ -No Were any procedures done? @ -No Diagnosis/symptom? @ -Neck pain, allergic reaction Acute, or Chronic, or Acute on Chronic? @ -Acute Uncomplicated (without systemic symptoms) or Complicated (systemic symptoms)? @ -Complicated Side effects of treatment? @ -No Exacerbation, Progression, or Severe Exacerbation? @ -No Poses a threat to life or bodily function? How? (Chest pain, [place], [place], pneumonia, PE, COPD, DKA, ARF, appy, cholecystitis, CVA, Diverticulitis, Homicidal, Suicidal, threat to staff... and all critical care pts) @ -No Disposition Clinical Impression: Strain of neck muscle, Allergic reaction Disposition: HOME SELF-CARE Condition: Stable Instructions (If sedation given, give patient instructions): Cervical Strain (ED) Additional Instructions: Please return to the Emergency Department if symptoms worsen or any other concerns. Prescriptions: predniSONE 50 mg PO DAILY #5 tab Is patient prescribed a controlled substance at d/c from ED?: No Referrals: Archana West MD [Primary Care Provider] - 1-2 days Time of Disposition: 11:08
[2024-12-20] MEDS: methylPREDNISolone SOD SUCCI 125 MG/2 ML VIAL IM ONE (10:15)
[2024-12-20] MEDS: LIDOCAINE VISCOUS 2% 15 ML CUP PO ONE (10:17)
[2024-12-20 11:25] VITALS: BP 138/79; PULSE 72; RESP 18; TEMP 98
== END 2024-12-20 11:28 | disposition home or self-care (01) ==
LOC: EC 08:45
DX: S16.1XXA Strain of muscle, fascia and tendon at neck level, initial encounter (principal); T78.40XA Allergy, unspecified, initial encounter; Z88.0 Allergy status to penicillin; Z88.8 Allergy status to other drugs, medicaments and biological substances; X58.XXXA Exposure to other specified factors, initial encounter
CPT/HCPCS: 99283; 96372; J2919